=== PATIENT | male | born 1965 | race Two or more races ===

== ENCOUNTER 2017-02-25 11:49 | Observation (INO) | payer MEDICAID, OTHER ==
[2017-02-25] MEDS ORDERED: IOPAMIDOL 370 (76%) 100 ML VIAL IV ONE (11:50)
[2017-02-25 13:34] LABS: ABSOLUTE NEUTROPHIL COUNT 5.1 K/mm3 (1.8-7.7); BASO # 0.1 K/mm3 (0.0-0.2); BASO % 0.6 % (0.2-1.0); EOS # 0.1 (0.0-0.5); EOS % 1.5 % (0.9-2.9); HEMATOCRIT 41.6 % (32.0-52.0); HEMOGLOBIN 14.5 gm/l (14.0-18.0); IMM NEUT% 0.3 % (0-1); LYMPH # 2.7 (1.0-4.8); LYMPH % 31.7 % (15-45); MEAN CELL VOLUME 87.8 fl (80.0-94.0); MEAN CORPUSCULAR HEMOGLOBIN 30.6 pg (27.0-31.0); MEAN CORPUSCULAR HGB CONC 34.9 g/dl (33.0-37.0); MEAN PLATELET VOLUME 10.7 fl (7.4-10.4); MONO # 0.6 (0.0-0.8); MONO % 6.8 % (4-12); NEUT % 59.1 % (43-75); PLATELET COUNT 201 K/mm3 (130-400); RED CELL DISTRIBUTION WIDTH 12.6 % (11.5-14.5)
[2017-02-25 13:52] LABS: TROPONIN I 0.06 ng/ml (0.0-0.06)
[2017-02-25 13:54] LABS: ALB/GLOB RATIO 1.2 (>1.0); ALBUMIN 3.7 gm/dL (3.5-5.7); CALCIUM 8.8 mg/dL (8.6-10.3)
[2017-02-25 13:56] LABS: CKMB ISOENZYME 2.5 ng/ml (0.6-6.3)
--- NOTE | 2017-02-25 14:37 | RAD ---
02/25/2017 2:33 PM CHEST - 2 VIEWS History: Chest pain for 5 to 6 days. Comparison: None Findings: Two views of the chest are obtained. The lungs are clear with out effusion or pneumothorax. The cardiomediastinal silhouette is unremarkable.. The osseous structures are intact.. IMPRESSION: No acute intrathoracic process.
--- NOTE | 2017-02-25 15:10 | CT ---
Exam Type: ABD/PELVIS W/ CON Date and Time: 02/25/2017 2:36 PM Clinical information: Epigastric pain. Elevated lipase. Comparison: None Technique: Contiguous axial 4 mm images were obtained from the lung bases through the pelvis after the uneventful IV administration of 100 cc of Isovue-370. Sagittal and coronal reformations with high resolution lung algorithm images were also obtained at this time. CT DI: 25.4 DLP 1340.9 FINDINGS: Lung base :No abnormality is identified at the lung bases. Visualized heart:There is no pericardial effusion. LIVER: within normal limits. BILE DUCTS: normal caliber. GALLBLADDER: No calcified gallstones. Normal caliber wall. PANCREAS: within normal limits. SPLEEN: within normal limits. ADRENALS: within normal limits. KIDNEYS: within normal limits. Stomach and small BOWEL: Normal caliber. Large bowel: Air and stool are noted within the large bowel. Appendix is normal. LYMPH NODES: No enlarged mesenteric lymph nodes. PERITONEUM: no ascites or free air, no fluid collection. VESSELS: Minimal scattered atherosclerotic disease. RETROPERITONEUM: within normal limits. ABDOMINAL WALL: within normal limits. Bladder: Normal BONES: within normal limits. IMPRESSION: Unremarkable examination with incidental findings as above. Findings were called to Dr. Baca at approximately 1506 hours on 02/25/2017.
[2017-02-25] MEDS ORDERED: REGADENOSON 0.1 MG DOSE IV ONE (15:52)
[2017-02-25] MEDS ORDERED: SODIUM CHLORIDE 0.9% 100 ML IV PRN (16:50)
[2017-02-25] MEDS ORDERED: BLISTEX LIPSTICK 1 EACH TP PRN (16:50)
[2017-02-25] MEDS ORDERED: BISACODYL 5 MG TABLET.EC PO PRN (16:50)
[2017-02-25] MEDS ORDERED: MAGNESIUM HYDROXIDE 30 ML UDCUP PO PRN (16:50)
[2017-02-25] MEDS ORDERED: MENTHOL/CETYLPYRD 1 EACH LOZENGE PO PRN (16:50)
[2017-02-25] MEDS ORDERED: ACETAMINOPHEN 325 MG TABLET PO PRN (16:50)
[2017-02-25] MEDS ORDERED: BISACODYL 10 MG SUP PR PRN (16:50)
[2017-02-25 17:07] VITALS: BMI 35.2
[2017-02-25] MEDS: PANTOPRAZOLE 40 MG TABLET DR PO SCH (17:20)
--- NOTE | 2017-02-25 19:13 | HP ---
WALLACE BONILLAJENNIFER ISAACS [id number] DATE OF ADMISSION: February 25, 2017 CHIEF COMPLAINT: Chest pain. HISTORY OF PRESENT ILLNESS: The patient is a 52-year-old male who presented to the [facility] Emergency Department due to concerns about intermittent chest pain symptoms over the past five to six days. He first noticed he had chest pressure in the central chest upon awakening about five or six days ago. The pain lasted about 10 to 15 minutes and resolved spontaneously. This happened several days in a row. Then yesterday he had pain during the day and again today around 11:00 a.m. he had recurrent pain during the day. The last couple of times, the pain has radiated to the left shoulder and down the left arm. He has not identified any aggravating or alleviating factors. It does not seem to be brought on with activity. He did have some diaphoresis with his chest pain symptoms today. The patient received nitroglycerin and four aspirin this morning and his pain resolved. He has not had any recurrent pain since then. REVIEW OF SYSTEMS: His review of systems is negative for any recent upper respiratory symptoms. He has had no fever or chills. He denies any cough or shortness of breath or palpitations. No edema or orthopnea. He has had no nausea or vomiting, no abdominal pain. No diarrhea or constipation. No headaches, fainting, blackouts or seizures. No urinary complaints. No recent travel. No recent medication changes. His review of systems is otherwise negative. PAST MEDICAL HISTORY: Is significant for: 1. No prior hospitalizations. 2. No cardiac history. 3. He does have a history of hyperlipidemia treated on Lipitor. 4. Adult onset diabetes since 2009 without complications on insulin and oral medications. PAST SURGICAL HISTORY: Negative. ALLERGIES: NO KNOWN DRUG ALLERGIES. CURRENT MEDICATIONS: 1. Baby aspirin 81 mg daily. 2. Lipitor 20 mg at bedtime. 3. Glimepiride 4 mg orally twice daily. 4. Detemir insulin 20 units subcutaneous every morning. 5. Metformin 1000 mg twice daily with meals. FAMILY HISTORY: Positive for a father who of complications of diabetes. SOCIAL HISTORY: He is . He has five children. He works in [employer]. He drinks about four to five beers a month. Denies tobacco use or illicit drug use. His primary care provider is Lexie. PHYSICAL EXAMINATION: VITAL SIGNS: Temperature is 98.1, pulse 76, blood pressure 137/97, respirations 18, oxygen saturation 98% on room air. Body mass index is 35.2. Weight is 99 kilograms. GENERAL: This is a slightly obese male in no acute distress. HEENT: Exam is unremarkable. NECK: Is supple without lymphadenopathy or thyromegaly. CHEST: Lungs are clear to auscultation bilaterally. CARDIOVASCULAR: Exam reveals a regular rate and rhythm without a murmur. ABDOMEN: Obese, soft, nontender, nondistended with positive bowel sounds. GENITOURINARY: Exam is deferred. RECTAL: Exam is deferred. EXTREMITIES: Show no peripheral edema. SKIN: Warm, dry and intact. NEUROLOGIC: Exam is nonfocal. ELECTROCARDIOGRAM: A 12-lead electrocardiogram shows sinus rhythm with a left anterior fascicular block. No acute ST or T wave changes are seen. DIAGNOSTIC IMAGING STUDIES: 1. Chest x-ray shows no acute cardiopulmonary abnormalities. 2. CT of the abdomen and chest with contrast was unremarkable. LABORATORY STUDIES: Consisted of a CBC with a white count of 8.6, hemoglobin of 14.5 and a platelet count of 201,000. D-dimer was low at 0.19. Chemistry profile showed a sodium of 133, potassium 4.0, creatinine 0.8, glucose 270. Normal liver function tests. CK-MB was 2.5, troponin I was borderline at 0.06. Lipase was elevated at 199 of undetermined significance. ASSESSMENT: 1. The patient has chest pain. Rule out acute coronary syndrome. He has risk factors of adult onset diabetes on insulin without complications and hyperlipidemia. He also is obese. 2. He has elevated lipase of uncertain significance, doubt pancreatitis given negative abdominal exam and unremarkable CT. PLAN: 1. He will be observed overnight on telemetry. We will get serial cardiac enzymes. If negative, we will proceed with a myocardial perfusion study in the morning. 2. Anticipate discharge home tomorrow if his study is negative. 3. Further treatment and recommendations will depend on his hospital course. cc: [facility] Claudia Wu N.P.
[2017-02-25] MEDS ORDERED: NITROGLYCERIN 0.4 MG/TAB.SUBL BOT SL PRN (20:06)
[2017-02-25] MEDS ORDERED: ATORVASTATIN CALCIUM 10 MG TABLET PO SCH (21:00)
[2017-02-25] MEDS: DOCUSATE SODIUM 100 MG CAPSULE PO SCH (22:15)
[2017-02-25] MEDS: GLIMEPIRIDE 4 MG TABLET PO SCH (22:15)
[2017-02-25] MEDS: INSULIN ASPART (DOSE) 100 UNITS/1 ML SUB-Q PRN (22:27)
[2017-02-26] MEDS: PANTOPRAZOLE 40 MG TABLET DR PO SCH ×2 (07:25→09:19)
[2017-02-26] MEDS: INSULIN ASPART (DOSE) 100 UNITS/1 ML SUB-Q PRN ×2 (07:26→14:42)
[2017-02-26] MEDS ORDERED: INSULIN DETEMIR 100 UNITS/ML VIAL SUB-Q SCH (09:00)
[2017-02-26] MEDS ORDERED: ASPIRIN (ENTERIC COATED) 81 MG TABLET.EC PO SCH (09:00)
[2017-02-26] MEDS ORDERED: ENOXAPARIN SODIUM 100 MG/ML SYRINGE SUB-Q SCH (09:00)
[2017-02-26] MEDS: DOCUSATE SODIUM 100 MG CAPSULE PO SCH (09:18)
[2017-02-26] MEDS: GLIMEPIRIDE 4 MG TABLET PO SCH (09:59)
[2017-02-26 11:56] VITALS: BP 122/83
[2017-02-26 12:10] LABS: A1C-GLYCOHEMOGLOBIN 1.3 g/dl; HEMOGLOBIN-GLYCO 13.5 g/dl
--- NOTE | 2017-02-26 14:03 | NUC MED ---
Exam: Nuclear medicine myocardial SPECT, ejection fraction and wall motion Comparison: None Indication: Chest pain, diabetes, family history of heart disease. Technique: 12.0 mCi of technetium 99m sestamibi were administered for the rest portion of the exam and SPECT imaging was obtained per protocol. Stress was achieved via the administration of 0.4 mg of LexiScan. At maximum stress, 36.1 mCi of technetium 99m sestamibi were administered and SPECT imaging was obtained per protocol. Please see separate EKG report. Findings: Ejection fraction is calculated at 74%. There is relative hypokinesia within the inferior wall. Wall motion is otherwise normal.. There is a fixed defect within the entire inferior wall seen from the base to apex. Myocardial perfusion is otherwise unremarkable. Impression: 1. No evidence of significant stress-induced ischemia. 2. Fixed defect within the entire inferior wall with associated hypokinesia. This may reflect nontransmural infarct. 3. Ejection fraction 74%. Message left for Dr. Manzanares 1400 hours 02/26/2017.
--- NOTE | 2017-02-26 21:17 | DS ---
JENNIFER SR [id number] ADMIT DATE: 02/25/2017 DISCHARGE DATE: 02/26/2017 ADMIT DIAGNOSIS: Chest pain. DISCHARGE DIAGNOSIS: Same. PROCEDURES: Ryan protocol Lexiscan Myoview, with no evidence of ischemia and an ejection fraction of 74%. ADMIT HISTORY AND PHYSICAL: Please see Dr. Adair's note for details. Briefly, Mr. Fulton is a 52-year-old male. He has been having intermittent chest pain for five or six days prior to admission. In the ER he was worked-up with a negative workup. Given his risk factors, he was referred to observation by the Hospitalist Service for rule-out UT and stress testing. HOSPITAL COURSE: He remained pain-free throughout his hospitalization. On the morning of 02/26/2017, he underwent an initiated Ryan Protocol sestamibi. We were unable to get his heart rate to an adequate level, and so this was transitioned over to a Lexiscan Myoview. He had no evidence of ischemia on the Myoview. He was noted to have a small fixed defect inferiorly, along with some minimal hypokinesia. This was felt to be due to a previous infarct, though there was no evidence of acute ischemia at this time. He remained completely symptom-free throughout his hospitalization. We have elected to discharge him home. I have started him on a Beta howard, as well as a PPI therapy, in addition to his usual medications, and I have asked him to follow-up next week with his regular physician. If he is getting continued symptoms given his risk factors and fixed defect noted on Myoview, it may be worth referral to cardiology for more invasive testing. DISCHARGE MEDICATIONS: 1. Metoprolol 25 mg one-half tablet by mouth twice a day (new medication). 2. Omeprazole 20 mg by mouth every day (new medication). All other medications prior to admit as follows: 1. Metformin 1,000 mg by mouth twice a day. 2. Levemir insulin 20 units sub-Q every day. 3. Amaryl 4 mg by mouth twice a day. 4. Lipitor 20 mg by mouth every day. 5. Aspirin 81 mg by mouth every day. DISCHARGE FOLLOW-UP: Will be at [facility] with Claudia Wu Nurse Practitioner, next week as scheduled, sooner as needed. cc: Claudia Wu, Nurse Practitioner [facility]
== END 2017-02-26 15:58 | disposition home or self-care (01) ==
LOC: ED 11:49 → MS 15:51
PROVIDERS: ADMIT Family Medicine; ATTEND Family Medicine
DX: R07.9 Chest pain, unspecified (principal); E11.9 Type 2 diabetes mellitus without complications; Z79.84 Long term (current) use of oral hypoglycemic drugs; Z79.4 Long term (current) use of insulin; E78.5 Hyperlipidemia, unspecified; E66.9 Obesity, unspecified